=== PATIENT | female | born 1995 | race Hispanic/Latino ===

== ENCOUNTER 2023-08-31 12:47 | Outpatient (CLI) | payer OTHER | END 2023-08-31 12:48 | disposition home or self-care (01) | LOC: CSHMRI 12:47 | PROVIDERS: ATTEND Family Medicine | DX: R29.6 Repeated falls (principal); G93.9 Disorder of brain, unspecified; M89.38 Hypertrophy of bone, other site | CPT/HCPCS: 70551 ==